=== PATIENT | female | born 1955 | race African-American/Black ===

== ENCOUNTER → 2019-06-11 | Outpatient (CLI) | payer MEDICARE, MEDICAID ==
[2016-01-22 11:37] VITALS: BP 143/90
[~2019-06-11] MED LIST: AMLO10TA8 PO; ASPI-612 PO; ATOR10TA60 PO; CYAN10002 PO; FERR325T72 PO; FURO80TA72 PO; LOSA100T14 PO; METO-247 PO; OMEP40CA45 PO; ONDA4TAB10 PO
[2019-06-11 15:00] LABS: HEMATOCRIT 41.3 % (36.0-47.0); HEMOGLOBIN 13.4 g/dL (12.0-15.5)
[2019-06-11 15:26] LABS: GFR 67.8; MAGNESIUM 1.7 mg/dL (1.8-2.4); POTASSIUM 3.4 mmol/L (3.5-5.1)
[2019-06-11 15:27] LABS: CHOLESTEROL/HDL RATIO 3.1
--- NOTE | 2019-06-12 08:38 | RAD ---
History: Routine Screening. Technique: Bilateral digital mammographic routine views were obtained Comparison: None. This is a baseline. Findings: Breast Tissue Density A : The breast tissue is predominately fatty replaced. There are no suspicious masses, microcalcifications or areas of architectural distortion. Impression: Negative mammogram. BI-RADS Category 1: Negative. Normal interval followup. . A mammogram does not have 100% sensitivity and therefore a negative imaging study should not delay further work up of a suspicious abnormality. The patient will receive a letter with the results in the mail. Patient information is entered into the reminder system with a target due date for the next screening mammogram. The patient will receive a reminder. "Our facility is accredited by the [employer] Mammography Program." BI-RADS 1 -- negative findings (within normal)
== END | disposition home or self-care (01) ==
LOC: MAMMO 13:52
PROVIDERS: ATTEND Family Medicine
DX: Z12.31 Encounter for screening mammogram for malignant neoplasm of breast (principal); I11.9 Hypertensive heart disease without heart failure; E66.01 Morbid (severe) obesity due to excess calories; E78.00 Pure hypercholesterolemia, unspecified; M54.5 Low back pain; J44.9 Chronic obstructive pulmonary disease, unspecified; R53.83 Other fatigue; Z79.899 Other long term (current) drug therapy
CPT/HCPCS: 36415; 77067; 80048; 80061; 82306; 83735; 84436; 84443; 85014; 85018